=== PATIENT | female | born 1990 | race Asian ===

== ENCOUNTER 2017-08-24 16:02 | Emergency (ER) | payer OTHER ==
[2017-08-24 16:09] VITALS: RESP 18
--- NOTE | 2017-08-24 16:23 | EDPHY ---
H & P Stated Complaint: Hematuria and dysuria since this morning Time Seen by Provider: 08/24/17 16:10 HPI/ROS: CHIEF COMPLAINT: Dysuria hematuria this morning HISTORY OF PRESENT ILLNESS: 27-year-old immunocompetent female history of chronic urologic disorder complaining of dysuria hematuria since this morning. She is at the tail end of her menstrual period but noticed increase in hematuria as well as dysuria since this morning. No back or flank pain. No nausea or vomiting. No unusual bleeding or bruising. REVIEW OF SYSTEMS: A ten point review of systems was performed and is negative with the exception of the items mentioned in the HPI PAST MEDICAL & SURGICAL HISTORY: No pertinent medical or surgical history SOCIAL HISTORY: Nonsmoker PHYSICAL EXAM (Prior to examination, patient consented to physical exam, hands were washed and my usual and customary physical exam procedures followed) 1) GENERAL: Well-developed, well-nourished, alert and oriented. Appears to be in no acute distress. 2) HEAD: Normocephalic, atraumatic 3) HEENT: Pupils equal, round, reactive to light bilaterally. Sclera anicteric. Nasopharynx, oropharynx, clear, no lesions. No gingival bleeding, no fetid odor 4) NECK: Full range of motion, no meningeal signs. 5) LUNGS: Clear auscultation bilaterally, no wheezes, no rhonchi, no retractions. 6) HEART: Regular rate and rhythm, no murmur, no heave, no gallop. 7) ABDOMEN: No guarding, no rebound, no focal tenderness, negative McBurney's, negative Kaur's, negative Rovsing's, negative peritoneal sign, 8) MUSCULOSKELETAL: Moving all extremities, no focal areas of tenderness, no obvious trauma. No peripheral edema or discoloration. 9) BACK: No CVA tenderness, no midline vertebral tenderness, no fluctuance, no step-off, no obvious trauma, no visual or palpable abnormality. 10) SKIN: No rash, no petechiae. 11) Psychiatric: Patient is oriented X 3, there is no agitation. DIFFERENTIAL DIAGNOSIS: In no particular order including but not limited to cystitis, pyelonephritis, nephrolithiasis - Personal History LMP (Females 10-55): 8-14 Days Ago Current Tetanus Diphtheria and Acellular Pertussis (TDAP): Unsure - Social History Smoking Status: Never smoked Constitutional: Initial Vital Signs Temperature (C) 37.1 C 08/24/17 16:08 Heart Rate 98 08/24/17 16:08 Respiratory Rate 18 08/24/17 16:08 Blood Pressure 115/86 H 08/24/17 16:08 O2 Sat (%) 99 08/24/17 16:08 O2 Delivery Mode Room Air Allergies/Adverse Reactions: No Known Allergies Allergy (Unverified 08/24/17 16:07) Home Medications: Medication Instructions Recorded Cephalexin [Keflex] 500 mg PO TID 7 Days cap 08/24/17 Phenazopyridine HCl [Pyridium] 200 mg PO PC #10 tab 08/24/17 Medical Decision Making ED Course/Re-evaluation: 4:22 p.m.: Informed at this time that due to the patient's gross hematuria laboratory is unable to run a urine test. Serum test will be obtained as well. - Data Points Laboratory Results: 08/24/17 08/24/17 16:12 16:12 Urine Color Pending Urine Appearance Pending Urine pH Pending Ur Specific [place] Pending Urine Protein Pending Urine Ketones Pending Urine Blood Pending Urine Nitrate Pending Urine Bilirubin Pending Urine Urobilinogen Pending Ur Leukocyte Esterase Pending Urine RBC Pending Urine WBC Pending Ur Epithelial Cells Pending Urine Glucose Pending Urine Test Pending Departure - Departure Disposition: Home, Routine, Self-Care Clinical Impression: Cystitis Condition: Good Instructions: Urinary Tract Infection in Women (ED) Additional Instructions: Return to the ER immediately if you experience fevers/chills, flu like symptoms , inability to tolerate oral intake, nausea or vomiting, or any other symptoms that concern you. Referrals: Nati Ba MD [Medical Doctor] - 1-2 days without fail Prescriptions: Cephalexin [Keflex] 500 mg PO TID 7 Days cap Phenazopyridine HCl [Pyridium] 200 mg PO PC #10 tab
[2017-08-24 17:28] VITALS: BP 98/57; PULSE 83; TEMP 98.6; O2SAT 97
== END 2017-08-24 17:28 | disposition home or self-care (01) ==
DX: N30.90 Cystitis, unspecified without hematuria (principal); B96.20 Unspecified Escherichia coli [E. coli] as the cause of diseases classified elsewhere

== ENCOUNTER 2017-08-24 18:53 | Emergency (ER) | payer OTHER ==
--- NOTE | 2017-08-24 19:15 | EDPHY ---
H & P Stated Complaint: Here this afternoon w/UTI;returns because she vomited x1 after taking meds Time Seen by Provider: 08/24/17 19:14 HPI/ROS: CHIEF COMPLAINT: Diagnosed with UTI today, vomiting HISTORY OF PRESENT ILLNESS: The patient presents to the ED after she developed vomiting. She was diagnosed with urinary tract infection earlier today. She was given a prescription for Keflex and Pyridium. The patient denies any fever or flank pain. The patient denies any worsening abdominal pain. She does complain of suprapubic pressure and slight discomfort. REVIEW OF SYSTEMS: A comprehensive 10 point review of systems is otherwise negative aside from elements mentioned in the history of present illness. Source: Patient Exam Limitations: No limitations - Personal History LMP (Females 10-55): 8-14 Days Ago Current Tetanus Diphtheria and Acellular Pertussis (TDAP): Yes - Medical/Surgical History Other PMH: none - Social History Smoking Status: Never smoked - Physical Exam Exam: General Appearance: Alert, no distress Eyes: Pupils equal and round no pallor or injection ENT, Mouth: Mucous membranes moist Respiratory: There are no retractions, lungs are clear to auscultation Cardiovascular: Regular rate and rhythm Gastrointestinal: Suprapubic discomfort Neurological: A&O, normal motor function, normal sensory exam, normal cranial nerves Skin: Warm and dry, no rashes Musculoskeletal: Neck is supple nontender Extremities: symmetrical, full range of motion Constitutional: Initial Vital Signs Temperature (C) 37.3 C 08/24/17 18:55 Heart Rate 92 08/24/17 18:55 Respiratory Rate 18 08/24/17 18:55 Blood Pressure 100/67 08/24/17 18:55 O2 Sat (%) 98 08/24/17 18:55 O2 Delivery Mode Room Air Allergies/Adverse Reactions: No Known Allergies Allergy (Verified 08/24/17 18:57) Home Medications: Medication Instructions Recorded Cephalexin [Keflex] 500 mg PO TID 7 Days cap 08/24/17 Phenazopyridine HCl [Pyridium] 200 mg PO PC #10 tab 08/24/17 Medical Decision Making ED Course/Re-evaluation: I reviewed the patient's urinalysis from earlier today. She is nontoxic and well-appearing. Patient was given a Zofran ODT p.o. challenge. She will be discharged home with a prescription for anti emetics. She is advised to return to the ED for increasing pain, flank pain, fever, vomiting or other concerns. Departure - Departure Disposition: Home, Routine, Self-Care Clinical Impression: Cystitis Condition: Good Instructions: Urinary Tract Infection in Women (ED) Additional Instructions: 1. Zofran as needed for nausea. 2. Return to the ED for severe worsening pain, fever, intractable vomiting or other concerns. 3. Take antibiotics and pain medications as previously prescribed. Please take antibiotics on a full stomach.
[2017-08-24] MEDS ORDERED: ONDANSETRON DISINTEGRATING 4 MG TAB PO ONE (19:43)
[2017-08-24] MEDS ORDERED: ONDANSETRON 4MG PREPACK#2 BTL TAKEHOME ONE (19:53)
[2017-08-24 20:30] VITALS: BP 92/56; PULSE 85; RESP 16; TEMP 98.8; O2SAT 97
== END 2017-08-24 20:29 | disposition home or self-care (01) ==
DX: N30.90 Cystitis, unspecified without hematuria (principal)